=== PATIENT | male | born 1940 | race Caucasian/White ===

== ENCOUNTER 2016-08-05 17:49 | Observation (INO) | payer MEDICARE, OTHER ==
[~2016-08-05] VITALS: Ht 172.7 cm; Wt 86.4 kg
--- NOTE | 2016-08-05 18:33 | ED.ADGEN ---
Adult General Chief Complaint Chief Complaint Fever HPI HPI Patient is a 76 year old male who presents with fever. According to around 2:30 this morning he woke up with chills and lasted for probably 3 hours and at 6:30 his temperature was 99 it. They didn't take his temperature when he had his chills. She states that he felt weak/low energy the rest the day until 4:30 when he spiked a fever 101.4. She states that he was mildly confused at that time not knowing when judgment Edyta was on you know he was looking at the clock and they watch it every day. He was given 2 Tylenol and then came to the emergency department after speaking to their primary care doctor. Currently he denies a fever, headache, neck stiffness, shortness of breath, chest discomfort, abdominal pain, dysuria. Have a seizure disorder but this is controlled with medicines. Review of Systems Review of Systems Constitutional: Positive for fever and chills. Eyes: Denies change in visual acuity, redness, or eye pain [] HENT: Denies nasal congestion or sore throat [] Respiratory: Denies cough or shortness of breath [] Cardiovascular: No additional information not addressed in HPI [] GI: Denies abdominal pain, nausea, vomiting, bloody stools or diarrhea [] : Denies dysuria or hematuria [] Musculoskeletal: Denies back pain or joint pain [] Integument: Denies rash or skin lesions [] Neurologic: Denies headache, focal weakness or sensory changes [] Endocrine: Denies polyuria or polydipsia [] Current Medications Current Medications Current Medications Medications (Trade) Dose Ordered Sig/Artie Start Time Stop Time Status Last Admin Dose Admin Sodium Chloride 1,000 ml @ 1,000 mls/hr 1X ONCE 08/05/16 21:30 08/05/16 22:30 DC 08/05/16 21:24 1,000 MLS/HR Allergies Allergies Allergies Coded Allergies Type Severity Reaction Last Updated Verified ampicillin Allergy Unknown 08/05/16 Yes levofloxacin Allergy Unknown 08/05/16 Yes sulfamethoxazole Allergy Unknown 08/05/16 Yes trimethoprim Allergy Unknown 08/05/16 Yes Physical Exam Physical Exam Constitutional: Well developed, well nourished, no acute distress, non-toxic appearance. [] HENT: Normocephalic, atraumatic, bilateral external ears normal, oropharynx moist, no oral exudates, nose normal. [] Eyes: PERRLA, EOMI, conjunctiva normal, no discharge. [] Neck: Normal range of motion, no tenderness, supple, no stridor. [] Cardiovascular:Heart rate regular rhythm, no murmur [] Lungs & Thorax: Bilateral breath sounds clear to auscultation [] Abdomen: Bowel sounds normal, soft, no tenderness, no masses, no pulsatile masses. [] Skin: Warm, dry, no erythema, no rash. [] Back: No tenderness, no CVA tenderness. [] Extremities: No tenderness, no cyanosis, no clubbing, ROM intact, no edema. [] Neurologic: Alert and oriented X 3, normal motor function, normal sensory function, no focal deficits noted. [] Psychologic: Affect normal, judgement normal, mood normal. [] Current Patient Data Vital Signs Vital Signs Date Time Temp Pulse Resp B/P (MAP) Pulse Ox O2 Delivery O2 Flow Rate FiO2 08/05/16 19:06 80 20 114/65 (81) 93 Room Air 08/05/16 17:49 99.2 Lab Results Laboratory Tests Test 08/05/16 18:25 08/05/16 18:59 08/05/16 19:20 08/05/16 22:25 White Blood Count 7.7 x10^3/uL (4.0-11.0) Red Blood Count 4.56 x10^6/uL (4.30-5.70) Hemoglobin 15.5 g/dL (13.0-17.5) Hematocrit 43.9 % (39.0-53.0) Mean Corpuscular Volume 96 fL (79-100) Mean Corpuscular Hemoglobin 34 pg (25-35) Mean Corpuscular Hemoglobin Concent 35 g/dL (31-37) Red Cell Distribution Width 14.0 % (11.5-14.5) Platelet Count 102 x10^3/uL (140-400) L Neutrophils (%) (Auto) 89 % (31-73) H Lymphocytes (%) (Auto) 3 % (24-48) L Monocytes (%) (Auto) 8 % (0-9) Eosinophils (%) (Auto) 1 % (0-3) Basophils (%) (Auto) 0 % (0-3) Neutrophils # (Auto) 6.8 x10^3uL (1.8-7.7) Lymphocytes # (Auto) 0.2 x10^3/uL (1.0-4.8) L Monocytes # (Auto) 0.6 x10^3/uL (0.0-1.1) Eosinophils # (Auto) 0.0 x10^3/uL (0.0-0.7) Basophils # (Auto) 0.0 x10^3/uL (0.0-0.2) Prothrombin Time 12.3 SEC (9.4-11.4) H Prothrombin Time INR 1.2 (0.9-1.1) H PTT 27 SEC (23-33) Sodium Level 138 mmol/L (136-145) Potassium Level 4.3 mmol/L (3.5-5.1) Chloride Level 104 mmol/L (98-107) Carbon Dioxide Level 24 mmol/L (21-32) Anion Gap 10 (6-14) Blood Urea Nitrogen 19 mg/dL (8-26) Creatinine 1.1 mg/dL (0.7-1.3) Estimated GFR (Cockcroft-Gault) 65.4 Glucose Level 109 mg/dL (70-99) H Calcium Level 8.6 mg/dL (8.5-10.1) Creatine Kinase 90 U/L (39-308) Creatine Kinase MB (Mass) < 0.5 ng/mL (0.0-3.6) Creatine Kinase MB Relative Index 0.6 % (0-4) Troponin I Quantitative < 0.017 ng/mL (0-0.055) Heterophil Agglutinins Negative (NEGATIVE) Influenza Type A (Rapid) Negative (NEGATIVE) Influenza Type B (Rapid) Negative (NEGATIVE) Lactic Acid Level 1.0 mmol/L (0.4-2.0) Urine Collection Type Unknown Urine Color Marily Urine Clarity Hazy Urine pH 5.5 Urine Specific [place] 1.020 Urine Protein 30 mg/dl (NEG-TRACE) Urine Glucose (UA) Neg mg/dL (NEG) Urine Ketones (Stick) 15 mg/dL (NEG) Urine Blood Small (NEG) Urine Nitrite Neg (NEG) Urine Bilirubin Neg (NEG) Urine Urobilinogen Dipstick 0.2 mg/dL (0.2 mg/dL) Urine Leukocyte Esterase Neg (NEG) Urine RBC 6-10 /HPF (0-2) Urine WBC 5-10 /HPF (0-4) Urine Squamous Epithelial Cells Few /LPF Urine Bacteria 0 /HPF (0-FEW) Urine Mucus Marked /LPF EKG EKG EKG shows normal sinus rate of 83 bpm, left axis deviation, T-wave inversion noted in lead 3, aVF, QTC 414 ms, as interpreted by me. Radiology/Procedures Radiology/Procedures 2 View chest x-ray did not show any focal consolidations, bony abnormalities, pneumothorax, as interpreted by me. Course & Med Decision Making Course & Med Decision Making Pertinent Labs and Imaging studies reviewed. (See chart for details) Patient's labs did not show any acute abnormalities. Chest x-ray also nonacute. Patient has not had any fevers in the ER. Blood cultures have been drawn. Patient is being admitted to Dr. Maza in stable condition this time. Final Impression Final Impression Fever Problems: Dragon Disclaimer Dragon Disclaimer This electronic medical record was generated, in whole or in part, using a voice recognition dictation system. KYRIE OSWALD MD August 05, 2016 18:33
--- NOTE | 2016-08-05 18:52 | EKG ---
[address] [address] Test Date: 2016-08-05 Test Time: 18:48:07 Pat Name: MADDI HOROWITZ Department: Room: Gender: M Food Service Technician: : [id number] Requested By: KYRIE OSWALD Order Number: [id number] Reading MD: Eric Michele Measurements Intervals [place] Rate: 83 P: -17 MO: 164 QRS: -26 QRSD: 88 T: -5 QT: 348 QTc: 414 Interpretive Statements SINUS RHYTHM LEFTWARD AXIS CONSIDER INFERIOR INFARCT NON-SPECIFIC ST/T CHANGES Electronically Signed On 08-10-2016 9:27:32 CDT by Eric Michele
[2016-08-05 19:09] LABS: BASO % 0 % (0-3); EOS % 1 % (0-3); HEMATOCRIT 43.9 % (39.0-53.0); HEMOGLOBIN 15.5 g/dL (13.0-17.5); LYMPH # 0.2 x10^3/uL (1.0-4.8); LYMPH % 3 % (24-48); MEAN CORPUSCULAR HEMOGLOBIN 34 pg (25-35); MEAN CORPUSCULAR HGB CONC 35 g/dL (31-37); MEAN CORPUSCULAR VOLUME 96 fL (79-100); MONO # 0.6 x10^3/uL (0.0-1.1); MONO % 8 % (0-9); NEUT # 6.8 x10^3uL (1.8-7.7); NEUT % 89 % (31-73); PLATELET COUNT 102 x10^3/uL (140-400); RED BLOOD COUNT 4.56 x10^6/uL (4.30-5.70); WHITE BLOOD COUNT 7.7 x10^3/uL (4.0-11.0)
[2016-08-05 19:19] LABS: MONONUCLEOSIS PATIENT NEGATIVE (NEGATIVE)
[2016-08-05 19:26] LABS: ANION GAP 10 (6-14); BLOOD UREA NITROGEN 19 mg/dL (8-26); CALCIUM 8.6 mg/dL (8.5-10.1); CARBON DIOXIDE 24 mmol/L (21-32); CHLORIDE 104 mmol/L (98-107); CREATINE KINASE 90 U/L (39-308); CREATININE 1.1 mg/dL (0.7-1.3); GFR 65.4; GLUCOSE 109 mg/dL (70-99); POTASSIUM 4.3 mmol/L (3.5-5.1); SODIUM 138 mmol/L (136-145)
[2016-08-05 19:52] LABS: INFLUENZA A PATIENT NEGATIVE (NEGATIVE); INFLUENZA B PATIENT NEGATIVE (NEGATIVE)
[2016-08-05] MEDS ORDERED: IV NORMAL SALINE 1,000ML 1,000 ML IV ONE (21:30)
[2016-08-05 22:55] LABS: BILIRUBIN,URINE NEG (NEG); CLARITY,URINE HAZY; COLOR,URINE AMBER; GLUCOSE,URINE NEG (NEG); NITRITE,URINE NEG (NEG); UROBILINOGEN,URINE 0.2 mg/dL (0.2 mg/dL)
[2016-08-05 22:56] LABS: BACTERIA,URINE 0 /HPF (0-FEW); SQUAMOUS EPITHELIAL CELL,UR FEW /LPF
[2016-08-05] MEDS ORDERED: ONDANSETRON PF 4 MG/2 ML VIAL. IV PRN (23:30)
--- NOTE | 2016-08-05 23:40 | RAD ---
PROCEDURE PA lateral chest x-rays HISTORY Weakness and fever COMPARISON No prior FINDINGS Heart size is normal. The mediastinal silhouette is normal. No pneumothorax, pulmonary opacities or pleural effusions. Bones are unremarkable. IMPRESSION No acute process. Electronically signed by: Naldo Mclaughlin MD (August 05, 2016 23:38:22)
[2016-08-06] VITALS (7 sets, daily range): BP systolic 106–131; BP diastolic 59–80
[2016-08-06] MEDS ORDERED: DIVA500T2 PO ×2 (00:53)
[2016-08-06] MEDS ORDERED: PRIM50TA24 PO ×2 (00:56→00:57)
[2016-08-06] MEDS ORDERED: ASPI325T8 PO (00:58)
[2016-08-06] MEDS ORDERED: MEMA10TA PO (01:00)
[2016-08-06] MEDS ORDERED: DONE10TA61 PO (01:01)
[2016-08-06] MEDS ORDERED: TAMS0.4C97 PO (01:03)
[2016-08-06] MEDS ORDERED: BRIM5DRO2 OU (01:08)
[2016-08-06 06:36] LABS: BASO % 1 % (0-3); EOS # 0.1 x10^3/uL (0.0-0.7); EOS % 2 % (0-3); HEMATOCRIT 40.8 % (39.0-53.0); HEMOGLOBIN 14.4 g/dL (13.0-17.5); LYMPH # 0.3 x10^3/uL (1.0-4.8); LYMPH % 7 % (24-48); MEAN CORPUSCULAR HEMOGLOBIN 34 pg (25-35); MEAN CORPUSCULAR HGB CONC 35 g/dL (31-37); MEAN CORPUSCULAR VOLUME 96 fL (79-100); MONO # 0.4 x10^3/uL (0.0-1.1); MONO % 10 % (0-9); NEUT # 3.5 x10^3uL (1.8-7.7); NEUT % 81 % (31-73); PLATELET COUNT 82 x10^3/uL (140-400); RED BLOOD COUNT 4.23 x10^6/uL (4.30-5.70); RED CELL DISTRIBUTION WIDTH 14.1 % (11.5-14.5); WHITE BLOOD COUNT 4.4 x10^3/uL (4.0-11.0)
[2016-08-06 06:48] LABS: ALBUMIN 2.6 g/dL (3.4-5.0); ALBUMIN/GLOBULIN RATIO 0.9 (1.0-1.7); CALCIUM 7.8 mg/dL (8.5-10.1); CREATININE 0.9 mg/dL (0.7-1.3); GFR 82.5; TOTAL BILIRUBIN 0.4 mg/dL (0.2-1.0); TOTAL PROTEIN 5.5 g/dL (6.4-8.2)
[2016-08-06 07:40] LABS: PLT ESTIMATE DECREASED (ADEQUATE)
[2016-08-06] MEDS ORDERED: DIVALPROEX SODIUM 250 MG TABLET.DR. PO SCH ×2 (12:00→21:00)
[2016-08-06] MEDS: DIVALPROEX SODIUM 250 MG TABLET.DR. PO SCH (14:23)
[2016-08-06] MEDS: BRIMONIDINE 0.2% OPHTH SOLUTION 5ML BOTTLE. OU SCH (20:42)
[2016-08-06] MEDS: TIMOLOL 0.5% OPHTH SOLUTION 5ML BOTTLE. OU SCH (20:42)
[2016-08-06] MEDS: MEMANTINE 10 MG TABLET. PO SCH (20:43)
[2016-08-06] MEDS ORDERED: TAMSULOSIN 0.4 MG CAP.ER.24H. PO SCH (21:00)
[2016-08-06] MEDS ORDERED: PRIMIDONE 50 MG TABLET PO SCH (21:00)
[2016-08-06] MEDS ORDERED: DONEPEZIL HCL 10 MG TABLET PO SCH (21:00)
[2016-08-07 05:40] VITALS: BP 129/83
[2016-08-07] MEDS: DIVALPROEX SODIUM 250 MG TABLET.DR. PO SCH (08:15)
[2016-08-07] MEDS: MEMANTINE 10 MG TABLET. PO SCH (08:16)
[2016-08-07] MEDS: BRIMONIDINE 0.2% OPHTH SOLUTION 5ML BOTTLE. OU SCH (08:20)
[2016-08-07] MEDS: TIMOLOL 0.5% OPHTH SOLUTION 5ML BOTTLE. OU SCH (08:20)
[2016-08-07] MEDS ORDERED: ASPIRIN 325 MG TABLET PO SCH (09:00)
[2016-08-07] MEDS ORDERED: PRIMIDONE 50 MG TABLET PO SCH (09:00)
[2016-08-07] MEDS ORDERED: CEFP200T PO (09:47)
--- NOTE | 2016-08-07 12:24 | PN ---
DATE: 08/06/2016 SUBJECTIVE: The patient admitted with sepsis, feeling little better, started him on Rocephin. The patient did have increase in his monocytes as well. When initially seen in the office he was hypotensive and he did have 5 to 10 white blood cells. Urine culture is still pending. Otherwise, the patient is making some progress overall. He was noted to have fever and chills at home and was brought in through the Emergency Room, but initially seen in the office for such, but as noted he was doing somewhat better overall. OBJECTIVE: VITAL SIGNS: The patient's blood pressure 120/80, respiratory rate 20, pulse in the 80s, afebrile. HEENT: The patient's head was atraumatic, normocephalic. Eyes: PERRLA without jaundice. Mouth and throat were normal. NECK: Supple. LUNGS: Diminished, but clear. CARDIOVASCULAR: Regular sinus rhythm, S1, S2. ABDOMEN: Soft, nontender, no rebound or guarding, positive bowel sounds. No hepatosplenomegaly. IMPRESSION: Probable sepsis, hypotension, thrombocytopenia, sinus tachycardia. PLAN: Continue to monitor the patient and continue with IV antibiotic therapy for now. KENNY MAC MD DR: ATA/yanique JOB#: [id number] / [id number]
== END 2016-08-07 11:11 | disposition home or self-care (01) ==
LOC: ER 17:49 → 1 SOUTH 23:17
PROVIDERS: ADMIT Family Medicine; ATTEND Family Medicine
DX: A41.89 Other specified sepsis (principal); R00.0 Tachycardia, unspecified; I95.9 Hypotension, unspecified; R00.2 Palpitations; G40.909 Epilepsy, unspecified, not intractable, without status epilepticus; E78.00 Pure hypercholesterolemia, unspecified; Z87.891 Personal history of nicotine dependence
CPT/HCPCS: 36415; 71020; 80048; 80053; 81001; 82553; 83605; 84484; 85008; 85027; 85610; 85730; 86308; 87040; 87086; 87804; 93005; 96361; 96365; 96375; 96376; 97161; 97165; 99285; G0378; G8978; G8979; G8980; J0696; J7030; G0379

== ENCOUNTER → 2016-08-21 | Outpatient (CLI) | payer MEDICARE, OTHER ==
[2016-08-07 05:40] VITALS: BP 129/83
[~2016-08-21] MED LIST: ASPI325T8 PO; BRIM5DRO2 OU; CEFP200T PO; DIVA500T2 PO; DONE10TA61 PO; MEMA10TA PO; PRIM50TA24 PO; TAMS0.4C97 PO
--- NOTE | 2016-08-21 16:05 | RAD ---
Left lower extremity venous ultrasound, 08/21/2016 : History: Left leg edema Duplex evaluation including grayscale, color flow and spectral Doppler analysis was performed. The femoral and popliteal veins show no filling defects to suggest DVT. The visualized calf veins are unremarkable. IMPRESSION: There is no sonographic evidence of deep vein thrombosis in the left lower extremity
== END | disposition home or self-care (01) ==
LOC: US 15:13
PROVIDERS: ATTEND Family Medicine
DX: R60.0 Localized edema (principal)
CPT/HCPCS: 93971